=== PATIENT | female | born 1955 | race Caucasian/White ===

== ENCOUNTER → 2018-01-07 | Outpatient (CLI) | payer OTHER ==
--- NOTE | 2018-01-07 12:08 | Diagnostic Imaging Report ---
PROCEDURE: Frontal and lateral views of the chest. COMPARISON: None. INDICATIONS: COPD FINDINGS: Lines/tubes: None. Lungs: The lungs are well inflated and clear. There is no evidence of pneumonia or pulmonary edema. Pleura: There is no pleural effusion or pneumothorax. Heart and mediastinum: The heart and the mediastinum are normal. Bones: No acute bony abnormality. Degenerative changes of the thoracic spine. IMPRESSION: No acute radiographic abnormality. Dictated by: Albino Kearney M.D. on 01/07/2018 at 12:09 Electronically approved by: Albino Kearney M.D. on 01/07/2018 at 12:09
--- NOTE | 2018-01-07 12:09 | Diagnostic Imaging Report ---
PROCEDURE:X-RAY RIGHT SHOULDER, COMPLETE COMPARISON:None. INDICATIONS:RIGHT SHOULDER PAIN FINDINGS: There are no fractures, dislocations, lytic or blastic lesions. The bones are well-mineralized. The soft-tissues are unremarkable. CONCLUSION: No acute radiographic abnormality. Dictated by: Albino Kearney M.D. on 01/07/2018 at 12:10 Electronically approved by: Albino Kearney M.D. on 01/07/2018 at 12:10
== END ==
LOC: RAD 10:28
PROVIDERS: ATTEND Internal Medicine
DX: M25.511 Pain in right shoulder (principal); J44.9 Chronic obstructive pulmonary disease, unspecified
CPT/HCPCS: 71046

== ENCOUNTER → 2019-06-22 | Outpatient (CLI) | payer OTHER ==
[~2019-06-22] MED LIST: IOPAMIDOL 370 MG/ML 200 ML INFUS..BTL INJ ONE; SODIUM CHLORIDE 0.9% 50ML 50 ML ONE
[2019-06-22 13:19] LABS: BLOOD UREA NITROGEN 7 mg/dL (7-26); BUN/CREATININE RATIO 10 (6-25); CREATININE, SERUM 0.68 mg/dL (0.57-1.11); EST GLOMERULAR FILTRATION RATE > 60 ML/MIN (60-)
--- NOTE | 2019-06-22 14:12 | Diagnostic Imaging Report ---
EXAM: CT Abdomen and Pelvis WITH intravenous contrast INDICATION: Abdominal pain COMPARISON: None. TECHNIQUE: Abdomen and pelvis were scanned utilizing a multidetector helical scanner from the lung base to the pubic symphysis after administration of IV contrast. Coronal and sagittal reformations were obtained. Routine protocol was performed. Scan was performed during portal venous phase. IV CONTRAST: 100mL of Isovue 370 ORAL CONTRAST: Water RADIATION DOSE: Total DLP: 656.5 mGy*cm Dose modulation, iterative reconstruction, and/or weight based adjustment of the mA/kV was utilized to reduce the radiation dose to as low as reasonably achievable. FINDINGS: LOWER THORAX: Normal. HEPATOBILIARY: No focal hepatic lesions. No biliary ductal dilatation. Status post cholecystectomy. SPLEEN: No splenomegaly. PANCREAS: No focal masses or ductal dilatation. ADRENALS: No adrenal nodules. KIDNEYS/URETERS: No hydronephrosis, stones, or solid mass lesions. PELVIC ORGANS/BLADDER: Unremarkable. PERITONEUM / RETROPERITONEUM: No free air or fluid. LYMPH NODES: No lymphadenopathy. VESSELS: Scattered atherosclerotic calcifications of the nonaneurysmal abdominal aorta and major branches. GI TRACT: There is mucosal hyperenhancement and wall thickening associated with the distal and terminal ileum. Sigmoid diverticulosis with a segment of wall thickening in the region of several diverticuli. No surrounding inflammatory changes. No bowel obstruction. Normal appendix. BONES AND SOFT TISSUES: No acute osseous injury. Grade 1 anterolisthesis at L4-5. No suspicious lytic or blastic lesions. IMPRESSION: Wall thickening and enhancement of the distal and terminal ileum can be seen with enteritis or inflammatory bowel disease. Sigmoid diverticulosis with a segment of sigmoid colon wall thickening without associated surrounding inflammatory changes. Signed by: Luis Carranza MD on 06/22/2019 2:09 PM
== END ==
LOC: CT 11:28
PROVIDERS: ATTEND Internal Medicine
DX: R10.9 Unspecified abdominal pain (principal)
CPT/HCPCS: 36415; 74177; 82565; 84520; Q9967

== ENCOUNTER 2023-07-14 09:12 | Inpatient (IN) | payer MEDICARE ==
[~2023-07-14] VITALS: Ht 152.4 cm; Wt 65.8 kg
[2023-07-14] MEDS ORDERED: SODIUM CHLORIDE 0.9% 1000ML 1,000 ML IV STA (09:15)
[2023-07-14 10:06] LABS: BASOPHILS # (AUTO) 0.1 (0.0-0.1); BASOPHILS % 0.7 % (0.0-1.0); EOSINOPHILS # (AUTO) 0.2 (0.0-0.4); EOSINOPHILS % 1.8 % (0.0-6.0); HEMATOCRIT 38.8 % (34.2-44.1); LYMPHOCYTES % 15.2 % (18.0-39.1); MEAN CORPUSCULAR HEMOGLOBIN 28.5 pg (28-32); MEAN CORPUSCULAR HGB CONC 33.5 g/dL (31-35); MEAN CORPUSCULAR VOLUME 85.1 fL (81-99); MONOCYTES # (AUTO) 0.8 (0.2-0.8); MONOCYTES % 6.3 % (4.4-11.3); NEUTROPHILS # (AUTO) 10.1 (2.1-6.9); NEUTROPHILS % 75.6 % (38.7-80.0); PLATELET COUNT 394 x10e3/uL (140-360); RED BLOOD COUNT 4.56 x10e6/uL (3.6-5.1); RED CELL DISTRIBUTION WIDTH 13.9 % (11.7-14.4); WHITE BLOOD COUNT 13.28 x10e3/uL (4.8-10.8)
[2023-07-14 10:27] LABS: ALBUMIN 2.7 g/dL (3.5-5.0); ALBUMIN/GLOBULIN RATIO 0.7 (0.8-2.0); ANION GAP 18.6 mmol/L (8-16); CALCIUM 9.2 mg/dL (8.4-10.2); CREATININE, SERUM 0.85 mg/dL (0.57-1.11); INR 1.06; MAGNESIUM 1.8 MG/DL (1.3-2.1); PROTHROMBIN TIME 14.5 seconds (11.9-14.5)
[2023-07-14 10:28] LABS: PARTIAL THROMBOPLASTIN TIME 36.8 seconds (23.8-35.5)
[2023-07-14 10:31] LABS: POTASSIUM 2.6 mmol/L (3.5-5.1)
[2023-07-14 10:57] LABS: CLARITY,URINE CLOUDY (CLEAR); COLOR,URINE YELLOW (YELLOW); LEUKOCYTE ESTERASE ,URINE NEGATIVE (NEGATIVE); NITRITE,URINE NEGATIVE (NEGATIVE); PROTEIN,URINE DIPSTICK 2+ (NEGATIVE)
[2023-07-14 10:58] LABS: KETONES,URINE 2+ (NEGATIVE); URINE UROBILINOGEN 1 mg/dL (0.2 - 1)
[2023-07-14] MEDS: POTASSIUM CHLORIDE 10MEQ/100ML 100 ML IV SCH ×4 (11:13→23:49)
[2023-07-14 11:23] LABS: BACTERIA,URINE FEW /HPF; EPITHELIAL CELLS,URINE FEW /LPF; WBC,URINE (MAN) 0-5 /HPF (0-5)
[2023-07-14] MEDS ORDERED: Morphine 4mg INJECTION 4 MG/ML INJ IV PRN (12:00)
[2023-07-14] MEDS ORDERED: ONDANSETRON HCL INJ 2MG/ML 2ML 2 MG/ML VIAL IV PRN (12:00)
[2023-07-14] MEDS ORDERED: KCL 20MEQ/.9 SOD CHL 1,000 ML IV ONE (12:00)
[2023-07-14] MEDS: METRONIDAZOLE 500MG/NS 100ML 100 ML IV SCH ×2 (12:30→18:04)
[2023-07-14] MEDS ORDERED: SODIUM CHLORIDE 0.9% 250ML 250 ML ONE (14:11)
[2023-07-14 14:30] VITALS: BP 108/70; PULSE 77; RESP 20; TEMP 98.4; O2SAT 100
[2023-07-14] MEDS ORDERED: HYDRALAZINE HCL 20 MG/ML VIAL IV PRN (15:00)
[2023-07-14 15:17] VITALS: PULSE 75; RESP 20; O2SAT 98
[2023-07-14] MEDS: D5.45%NS/KCL 20MEQ 1,000 ML IV SCH (15:27)
[2023-07-14 19:45] VITALS: PULSE 72; RESP 18; O2SAT 97
[2023-07-14] MEDS ORDERED: DEXTROSE 50% SYRINGE 50 ML IV PRN (19:45)
[2023-07-14 19:47] VITALS: BP 98/67; PULSE 70; RESP 20; TEMP 98.7; O2SAT 97
[2023-07-14] MEDS ORDERED: TEMAZEPAM 15 MG CAP PO PRN (21:00)
[2023-07-14] MEDS: INSULIN REGULAR, HUMAN 100 UNIT/1 ML SQ SCH (21:00)
[2023-07-14] MEDS: MEROPENEM 1 GM in SODIUM CHLORIDE 0.9% 100 ML IV SCH (21:01)
[2023-07-14] MEDS ORDERED: POTASSIUM CHLORIDE 10MEQ/100ML 200 ML ONE (21:08)
[2023-07-14] MEDS: ACETAMINOPHEN 325 MG TAB PO PRN (21:12)
[2023-07-14 23:40] VITALS: BP 95/73; PULSE 68; RESP 18; TEMP 98.3; O2SAT 97
[2023-07-15] VITALS (10 sets, daily range): BP systolic 95–116; BP diastolic 70–85; PULSE 68–86; RESP 16–18; TEMP 97.4–98.3; O2SAT 96–99
[2023-07-15] MEDS: METRONIDAZOLE 500MG/NS 100ML 100 ML IV SCH ×5 (01:15→23:28)
[2023-07-15] MEDS: D5.45%NS/KCL 20MEQ 1,000 ML IV SCH ×3 (04:09→21:10)
[2023-07-15] MEDS: MEROPENEM 1 GM in SODIUM CHLORIDE 0.9% 100 ML IV SCH (04:09)
[2023-07-15] MEDS: ACETAMINOPHEN 325 MG TAB PO PRN ×3 (04:10→23:38)
[2023-07-15 05:08] LABS: BASOPHILS # (AUTO) 0.1 (0.0-0.1); BASOPHILS % 0.9 % (0.0-1.0); EOSINOPHILS # (AUTO) 0.4 (0.0-0.4); EOSINOPHILS % 3.3 % (0.0-6.0); HEMATOCRIT 33.2 % (34.2-44.1); HEMOGLOBIN 11.1 g/dL (12.0-16.0); LYMPHOCYTES # (AUTO) 1.4 (1.0-3.2); MEAN CORPUSCULAR HEMOGLOBIN 28.3 pg (28-32); MEAN CORPUSCULAR HGB CONC 33.4 g/dL (31-35); MEAN CORPUSCULAR VOLUME 84.7 fL (81-99); MONOCYTES # (AUTO) 0.8 (0.2-0.8); MONOCYTES % 7.2 % (4.4-11.3); NEUTROPHILS % 75.1 % (38.7-80.0); PLATELET COUNT 347 x10e3/uL (140-360); RED BLOOD COUNT 3.92 x10e6/uL (3.6-5.1); RED CELL DISTRIBUTION WIDTH 14.2 % (11.7-14.4); WHITE BLOOD COUNT 10.67 x10e3/uL (4.8-10.8)
[2023-07-15 05:36] LABS: ALBUMIN 2.1 g/dL (3.5-5.0); ALBUMIN/GLOBULIN RATIO 0.7 (0.8-2.0); ANION GAP 12.8 mmol/L (8-16); CALCIUM 8.1 mg/dL (8.4-10.2); CREATININE, SERUM 0.7 mg/dL (0.57-1.11); POTASSIUM 2.8 mmol/L (3.5-5.1)
[2023-07-15 05:50] LABS: CHOL/HDL RATIO 3.1 (3.0-3.6); PHOSPHORUS 2.7 MG/DL (2.3-4.7)
[2023-07-15] MEDS: INSULIN REGULAR, HUMAN 100 UNIT/1 ML SQ SCH ×4 (07:30→21:00)
[2023-07-15] MEDS: POTASSIUM CHLORIDE 20MEQ/100ML 100 ML IV SCH ×3 (09:03→13:55)
[2023-07-15] MEDS: CEFEPIME 2 GM in SODIUM CHLORIDE 0.9% 100 ML IV SCH ×2 (13:54→21:11)
[2023-07-15] MEDS ORDERED: LEVOTHYROXINE SODIUM 100 MCG/VIAL IV ONE (15:45)
[2023-07-15 23:12] LABS: % IRON SATURATION 21 % (15-50); IRON 27 ug/dL (50-170); TOTAL IRON BINDING CAPACITY 130 ug/dL (261-478); TRANSFERRIN 93 mg/dL (180-382)
[2023-07-16] VITALS (9 sets, daily range): BP systolic 99–121; BP diastolic 69–85; PULSE 75–88; RESP 16–18; TEMP 97.2–98.2; O2SAT 92–100
[2023-07-16] MEDS: METRONIDAZOLE 500MG/NS 100ML 100 ML IV SCH ×3 (05:16→17:00)
[2023-07-16] MEDS: CEFEPIME 2 GM in SODIUM CHLORIDE 0.9% 100 ML IV SCH ×4 (05:16→20:59)
[2023-07-16] MEDS: D5.45%NS/KCL 20MEQ 1,000 ML IV SCH ×2 (05:18→17:06)
[2023-07-16 05:50] LABS: BASOPHILS # (AUTO) 0.1 (0.0-0.1); BASOPHILS % 0.8 % (0.0-1.0); EOSINOPHILS # (AUTO) 0.2 (0.0-0.4); EOSINOPHILS % 2.4 % (0.0-6.0); HEMATOCRIT 33.8 % (34.2-44.1); HEMOGLOBIN 11.1 g/dL (12.0-16.0); LYMPHOCYTES # (AUTO) 1.5 (1.0-3.2); LYMPHOCYTES % 15.4 % (18.0-39.1); MEAN CORPUSCULAR HGB CONC 32.8 g/dL (31-35); MEAN CORPUSCULAR VOLUME 85.1 fL (81-99); MONOCYTES # (AUTO) 0.8 (0.2-0.8); MONOCYTES % 8.7 % (4.4-11.3); NEUTROPHILS # (AUTO) 6.9 (2.1-6.9); NEUTROPHILS % 72.4 % (38.7-80.0); PLATELET COUNT 360 x10e3/uL (140-360); RED BLOOD COUNT 3.97 x10e6/uL (3.6-5.1); RED CELL DISTRIBUTION WIDTH 14.2 % (11.7-14.4); WHITE BLOOD COUNT 9.57 x10e3/uL (4.8-10.8)
[2023-07-16 06:15] LABS: ALBUMIN 2.1 g/dL (3.5-5.0); ALBUMIN/GLOBULIN RATIO 0.6 (0.8-2.0); ANION GAP 11.2 mmol/L (8-16); CALCIUM 8.1 mg/dL (8.4-10.2); CREATININE, SERUM 0.67 mg/dL (0.57-1.11); POTASSIUM 3.2 mmol/L (3.5-5.1)
[2023-07-16] MEDS: INSULIN REGULAR, HUMAN 100 UNIT/1 ML SQ SCH ×4 (07:30→21:00)
[2023-07-16] MEDS: ACETAMINOPHEN 325 MG TAB PO PRN ×2 (08:16→14:04)
[2023-07-16] MEDS: IRON SUCROSE 100 MG in SODIUM CHLORIDE 0.9% 100 ML IV SCH (08:23)
[2023-07-16] MEDS: HYDROCODONE/APAP 7.5MG-325MG 1 EA TAB PO PRN (20:48)
[2023-07-17] VITALS (9 sets, daily range): BP systolic 101–113; BP diastolic 64–82; PULSE 69–73; RESP 17–18; TEMP 97.2–98.2; O2SAT 95–100
[2023-07-17] MEDS: METRONIDAZOLE 500MG/NS 100ML 100 ML IV SCH ×4 (01:44→16:50)
[2023-07-17 06:12] LABS: BASOPHILS # (AUTO) 0.1 (0.0-0.1); BASOPHILS % 0.9 % (0.0-1.0); EOSINOPHILS # (AUTO) 0.3 (0.0-0.4); EOSINOPHILS % 3.8 % (0.0-6.0); HEMATOCRIT 32.8 % (34.2-44.1); HEMOGLOBIN 10.9 g/dL (12.0-16.0); LYMPHOCYTES # (AUTO) 1.6 (1.0-3.2); LYMPHOCYTES % 20.2 % (18.0-39.1); MEAN CORPUSCULAR HEMOGLOBIN 28.2 pg (28-32); MEAN CORPUSCULAR HGB CONC 33.2 g/dL (31-35); MEAN CORPUSCULAR VOLUME 84.8 fL (81-99); MONOCYTES # (AUTO) 0.7 (0.2-0.8); MONOCYTES % 8.5 % (4.4-11.3); NEUTROPHILS # (AUTO) 5.4 (2.1-6.9); NEUTROPHILS % 66.4 % (38.7-80.0); PLATELET COUNT 345 x10e3/uL (140-360); RED BLOOD COUNT 3.87 x10e6/uL (3.6-5.1); RED CELL DISTRIBUTION WIDTH 14.6 % (11.7-14.4)
[2023-07-17 06:47] LABS: BLOOD UREA NITROGEN < 5 mg/dL (7-26); CALCIUM 7.9 mg/dL (8.4-10.2); CARBON DIOXIDE 21 mmol/L (22-29); CHLORIDE 114 mmol/L (98-107); CREATININE, SERUM 0.72 mg/dL (0.57-1.11); GLUCOSE 103 mg/dL (74-118); MAGNESIUM 1.4 MG/DL (1.3-2.1); SODIUM 143 mmol/L (136-145)
[2023-07-17 06:52] LABS: BUN/CREATININE RATIO 7 (6-25)
[2023-07-17] MEDS: INSULIN REGULAR, HUMAN 100 UNIT/1 ML SQ SCH ×4 (07:30→21:00)
[2023-07-17] MEDS: D5.45%NS/KCL 20MEQ 1,000 ML IV SCH (08:21)
[2023-07-17] MEDS: IRON SUCROSE 100 MG in SODIUM CHLORIDE 0.9% 100 ML IV SCH (08:22)
[2023-07-17] MEDS: HYDROCODONE/APAP 7.5MG-325MG 1 EA TAB PO PRN ×3 (08:22→18:40)
[2023-07-17] MEDS ORDERED: ROSUVASTATIN CAL5 MG PO (08:27)
[2023-07-17] MEDS ORDERED: LEVOTHYROXINE88 MCG PO (08:27)
[2023-07-17] MEDS ORDERED: METFORMIN HCL500 M1 PO (08:27)
[2023-07-17] MEDS ORDERED: LISINOPRIL10 MG PO (08:27)
[2023-07-17] MEDS ORDERED: ALBUTEROL INH (08:27)
[2023-07-17] MEDS: MAGNESIUM SULFATE 2GM/50ML 50 ML IV SCH ×2 (10:06→12:06)
[2023-07-17] MEDS: POTASSIUM CHLORIDE 20MEQ/100ML 100 ML IV SCH ×3 (10:06→15:07)
[2023-07-17] MEDS: CEFEPIME 2 GM in SODIUM CHLORIDE 0.9% 100 ML IV SCH ×2 (13:17→22:03)
[2023-07-17] MEDS: ACETAMINOPHEN 325 MG TAB PO PRN (22:28)
[2023-07-18] VITALS (10 sets, daily range): BP systolic 103–122; BP diastolic 62–84; PULSE 54–86; RESP 18–20; TEMP 98–99.2; O2SAT 94–100
[2023-07-18] MEDS: METRONIDAZOLE 500MG/NS 100ML 100 ML IV SCH ×5 (00:44→23:18)
[2023-07-18] MEDS: ACETAMINOPHEN 325 MG TAB PO PRN (05:50)
[2023-07-18] MEDS: D5.45%NS/KCL 20MEQ 1,000 ML IV SCH (05:52)
[2023-07-18] MEDS: CEFEPIME 2 GM in SODIUM CHLORIDE 0.9% 100 ML IV SCH ×3 (05:53→22:28)
[2023-07-18 07:11] LABS: ANION GAP 10.8 mmol/L (8-16); CALCIUM 8.3 mg/dL (8.4-10.2); CREATININE, SERUM 0.74 mg/dL (0.57-1.11); POTASSIUM 3.8 mmol/L (3.5-5.1)
[2023-07-18] MEDS: HYDROCODONE/APAP 7.5MG-325MG 1 EA TAB PO PRN ×3 (09:22→21:25)
[2023-07-18] MEDS: INSULIN REGULAR, HUMAN 100 UNIT/1 ML SQ SCH ×4 (09:25→21:00)
[2023-07-18] MEDS: ONDANSETRON HCL 4 MG ORAL DISINTEGRATING TAB PO PRN ×2 (09:26→13:34)
[2023-07-18] MEDS: IRON SUCROSE 100 MG in SODIUM CHLORIDE 0.9% 100 ML IV SCH (09:47)
[2023-07-19] VITALS (12 sets, daily range): BP systolic 91–123; BP diastolic 72–92; PULSE 66–80; RESP 16–20; TEMP 98.1–98.8; O2SAT 94–100
[2023-07-19] MEDS: D5.45%NS/KCL 20MEQ 1,000 ML IV SCH ×2 (00:08→20:59)
[2023-07-19] MEDS: CEFEPIME 2 GM in SODIUM CHLORIDE 0.9% 100 ML IV SCH ×3 (05:28→22:28)
[2023-07-19] MEDS: METRONIDAZOLE 500MG/NS 100ML 100 ML IV SCH ×3 (05:28→17:15)
[2023-07-19] MEDS: INSULIN REGULAR, HUMAN 100 UNIT/1 ML SQ SCH ×4 (07:30→20:11)
[2023-07-19] MEDS: ONDANSETRON HCL 4 MG ORAL DISINTEGRATING TAB PO PRN ×2 (07:46→12:26)
[2023-07-19] MEDS: IRON SUCROSE 100 MG in SODIUM CHLORIDE 0.9% 100 ML IV SCH (07:47)
[2023-07-19] MEDS: HYDROCODONE/APAP 7.5MG-325MG 1 EA TAB PO PRN ×2 (13:31→20:13)
[2023-07-20] VITALS (10 sets, daily range): BP systolic 109–133; BP diastolic 76–92; PULSE 66–103; RESP 16–20; TEMP 98.1–98.6; O2SAT 94–100
[2023-07-20] MEDS: METRONIDAZOLE 500MG/NS 100ML 100 ML IV SCH ×5 (00:07→23:29)
[2023-07-20] MEDS: HYDROCODONE/APAP 7.5MG-325MG 1 EA TAB PO PRN ×4 (02:37→20:17)
[2023-07-20] MEDS: CEFEPIME 2 GM in SODIUM CHLORIDE 0.9% 100 ML IV SCH ×3 (06:00→22:23)
[2023-07-20] MEDS: INSULIN REGULAR, HUMAN 100 UNIT/1 ML SQ SCH ×4 (07:30→20:15)
[2023-07-20] MEDS: IRON SUCROSE 100 MG in SODIUM CHLORIDE 0.9% 100 ML IV SCH (09:26)
[2023-07-20 10:56] LABS: ANION GAP 10.3 mmol/L (8-16); CALCIUM 8.2 mg/dL (8.4-10.2); CREATININE, SERUM 0.8 mg/dL (0.57-1.11); MAGNESIUM 1.3 MG/DL (1.3-2.1); PHOSPHORUS 2.3 MG/DL (2.3-4.7); POTASSIUM 3.3 mmol/L (3.5-5.1)
[2023-07-20 10:59] LABS: BASOPHILS # (AUTO) 0.1 (0.0-0.1); BASOPHILS % 0.8 % (0.0-1.0); EOSINOPHILS # (AUTO) 0.5 (0.0-0.4); EOSINOPHILS % 5.4 % (0.0-6.0); HEMATOCRIT 32.9 % (34.2-44.1); HEMOGLOBIN 10.9 g/dL (12.0-16.0); LYMPHOCYTES # (AUTO) 1.8 (1.0-3.2); LYMPHOCYTES % 21.2 % (18.0-39.1); MEAN CORPUSCULAR HEMOGLOBIN 27.9 pg (28-32); MEAN CORPUSCULAR HGB CONC 33.1 g/dL (31-35); MEAN CORPUSCULAR VOLUME 84.1 fL (81-99); MONOCYTES # (AUTO) 0.6 (0.2-0.8); MONOCYTES % 6.6 % (4.4-11.3); NEUTROPHILS # (AUTO) 5.6 (2.1-6.9); NEUTROPHILS % 65.6 % (38.7-80.0); PLATELET COUNT 349 x10e3/uL (140-360); RED BLOOD COUNT 3.91 x10e6/uL (3.6-5.1); RED CELL DISTRIBUTION WIDTH 15.4 % (11.7-14.4); WHITE BLOOD COUNT 8.51 x10e3/uL (4.8-10.8)
[2023-07-20] MEDS: D5.45%NS/KCL 20MEQ 1,000 ML IV SCH (11:51)
[2023-07-21] VITALS (11 sets, daily range): BP systolic 110–125; BP diastolic 64–89; PULSE 69–89; RESP 16–22; TEMP 98.1–98.8; O2SAT 94–100
[2023-07-21] MEDS: D5.45%NS/KCL 20MEQ 1,000 ML IV SCH (04:47)
[2023-07-21] MEDS: HYDROCODONE/APAP 7.5MG-325MG 1 EA TAB PO PRN ×4 (04:55→20:27)
[2023-07-21] MEDS: METRONIDAZOLE 500MG/NS 100ML 100 ML IV SCH ×3 (04:55→17:54)
[2023-07-21] MEDS ORDERED: MAGNESIUM SULFATE 2GM/50ML 50 ML IV ONE ×2 (05:15)
[2023-07-21] MEDS: CEFEPIME 2 GM in SODIUM CHLORIDE 0.9% 100 ML IV SCH ×3 (06:14→22:22)
[2023-07-21] MEDS ORDERED: LEVOTHYROXINE SODIUM 100 MCG/VIAL IV ONE (06:45)
[2023-07-21] MEDS: INSULIN REGULAR, HUMAN 100 UNIT/1 ML SQ SCH ×4 (07:30→21:00)
[2023-07-21] MEDS ORDERED: PROMETHAZINE 12.5MG/ NACL 0.9% 12.5 MG/50 ML BAG IV PRN (18:15)
[2023-07-21] MEDS ORDERED: Morphine 4mg INJECTION 4 MG/ML INJ IV PRN (18:15)
[2023-07-21] MEDS ORDERED: POTASSIUM CHLORIDE 20 MEQ TAB CR PO ONE (22:45)
[2023-07-22] VITALS (8 sets, daily range): BP systolic 102–124; BP diastolic 69–84; PULSE 66–91; RESP 16–19; TEMP 97.8–98.1; O2SAT 96–100
[2023-07-22] MEDS: METRONIDAZOLE 500MG/NS 100ML 100 ML IV SCH ×4 (00:04→17:41)
[2023-07-22] MEDS: HYDROCODONE/APAP 7.5MG-325MG 1 EA TAB PO PRN ×4 (00:29→18:45)
[2023-07-22] MEDS: LEVOTHYROXINE SODIUM 88 MCG TAB PO SCH (05:34)
[2023-07-22 05:53] LABS: BASOPHILS # (AUTO) 0.1 (0.0-0.1); BASOPHILS % 1.5 % (0.0-1.0); EOSINOPHILS # (AUTO) 0.7 (0.0-0.4); HEMATOCRIT 30.4 % (34.2-44.1); LYMPHOCYTES % 30.4 % (18.0-39.1); MEAN CORPUSCULAR HEMOGLOBIN 31.1 pg (28-32); MEAN CORPUSCULAR HGB CONC 36.2 g/dL (31-35); MEAN CORPUSCULAR VOLUME 85.9 fL (81-99); MONOCYTES # (AUTO) 0.6 (0.2-0.8); MONOCYTES % 9.4 % (4.4-11.3); NEUTROPHILS # (AUTO) 3.2 (2.1-6.9); NEUTROPHILS % 48.3 % (38.7-80.0); PLATELET COUNT 257 x10e3/uL (140-360); RED BLOOD COUNT 3.54 x10e6/uL (3.6-5.1); RED CELL DISTRIBUTION WIDTH 18.3 % (11.7-14.4); WHITE BLOOD COUNT 6.67 x10e3/uL (4.8-10.8)
[2023-07-22 06:18] LABS: ANION GAP 8.3 mmol/L (8-16); CREATININE, SERUM 0.71 mg/dL (0.57-1.11); MAGNESIUM 1.7 MG/DL (1.3-2.1); POTASSIUM 3.3 mmol/L (3.5-5.1)
[2023-07-22] MEDS: CEFEPIME 2 GM in SODIUM CHLORIDE 0.9% 100 ML IV SCH ×3 (06:18→23:47)
[2023-07-22] MEDS: INSULIN REGULAR, HUMAN 100 UNIT/1 ML SQ SCH ×4 (07:30→21:00)
[2023-07-22] MEDS ORDERED: MAGNESIUM SULF 1GRAM/DEXTROSE 100 ML IV ONE (10:30)
[2023-07-22] MEDS: MAGNESIUM SULFATE 2GM/50ML 50 ML IV SCH ×2 (10:37→13:00)
[2023-07-22] MEDS: D5.45%NS/KCL 20MEQ 1,000 ML IV SCH (10:48)
[2023-07-22] MEDS: POTASSIUM CHLORIDE 20MEQ/100ML 100 ML IV SCH ×3 (12:00→23:47)
[2023-07-22] MEDS: MAGNESIUM OXIDE 400 MG TAB PO SCH (17:40)
[2023-07-23] VITALS: BP 129/78; PULSE 82; RESP 18; TEMP 98.2; O2SAT 98
[2023-07-23] MEDS ORDERED: POTASSIUM CHLORIDE 20MEQ/100ML 100 ML IV SCH
[2023-07-23] MEDS: METRONIDAZOLE 500MG/NS 100ML 100 ML IV SCH ×3 (01:00→11:58)
[2023-07-23 04:00] VITALS: BP 109/72; PULSE 70; RESP 18; TEMP 97.9; O2SAT 98
[2023-07-23] MEDS: LEVOTHYROXINE SODIUM 88 MCG TAB PO SCH (05:46)
[2023-07-23] MEDS: CEFEPIME 2 GM in SODIUM CHLORIDE 0.9% 100 ML IV SCH ×2 (05:46→13:17)
[2023-07-23 06:53] VITALS: PULSE 78; RESP 20; O2SAT 98
[2023-07-23 07:04] LABS: ANION GAP 8.7 mmol/L (8-16); CALCIUM 7.7 mg/dL (8.4-10.2); CREATININE, SERUM 0.71 mg/dL (0.57-1.11); MAGNESIUM 1.9 MG/DL (1.3-2.1); PHOSPHORUS 1.4 MG/DL (2.3-4.7); POTASSIUM 3.7 mmol/L (3.5-5.1)
[2023-07-23] MEDS: INSULIN REGULAR, HUMAN 100 UNIT/1 ML SQ SCH ×2 (07:30→12:06)
[2023-07-23] MEDS: HYDROCODONE/APAP 7.5MG-325MG 1 EA TAB PO PRN (07:51)
[2023-07-23 07:53] VITALS: BP 112/84; PULSE 67; RESP 18; TEMP 98.1; O2SAT 100
[2023-07-23] MEDS: MAGNESIUM OXIDE 400 MG TAB PO SCH (08:12)
[2023-07-23] MEDS ORDERED: POTASSIUM CHLORIDE 20MEQ/100ML 100 ML IV ONE (09:00)
[2023-07-23] MEDS ORDERED: POTASSIUM CHLORIDE 20 MEQ TAB CR PO SCH (09:00)
[2023-07-23 09:07] VITALS: BP 112/84; PULSE 67; RESP 18; TEMP 98.1; O2SAT 100
[2023-07-23] MEDS ORDERED: POTASSIUM PHOSPHATE 30 MM in SODIUM CHLORIDE 0.9% 250ML 250 ML IV ONE (09:30)
[2023-07-23 11:48] VITALS: BP 105/74; PULSE 65; RESP 17; TEMP 98.4; O2SAT 100
[2023-07-23] MEDS ORDERED: ONDANSETRON ODT4 MG PO (12:46)
[2023-07-23] MEDS ORDERED: PROTONIX20 MG PO (12:46)
[2023-07-23] MEDS ORDERED: METRONIDAZOLE500 MG PO (13:09)
[2023-07-23] MEDS: ACETAMINOPHEN 325 MG TAB PO PRN (14:30)
[2023-07-23] MEDS ORDERED: PANTOPRAZOLE SOD 40 MG TABEC PO SCH (16:30)
== END 2023-07-23 15:10 | disposition home or self-care (01) | DRG 872 ==
LOC: ER 09:17 → ERHOLD 12:06 → MED/SURG 13:42
PROVIDERS: ADMIT Internal Medicine; ATTEND Internal Medicine
PROC: 3E04329 Introduction of Other Anti-infective into Central Vein, Percutaneous Approach (ICD-10-PCS; principal; 2023-07-14)
PROC: 02HV33Z Insertion of Infusion Device into Superior Vena Cava, Percutaneous Approach (ICD-10-PCS; 2023-07-15)
PROC: B548ZZA Ultrasonography of Superior Vena Cava, Guidance (ICD-10-PCS; 2023-07-15)
DX: A41.9 Sepsis, unspecified organism (principal); K57.20 Diverticulitis of large intestine with perforation and abscess without bleeding; N13.4 Hydroureter; N13.39 Other hydronephrosis; I10 Essential (primary) hypertension; E11.9 Type 2 diabetes mellitus without complications; N74 Female pelvic inflammatory disorders in diseases classified elsewhere; E03.9 Hypothyroidism, unspecified; F17.210 Nicotine dependence, cigarettes, uncomplicated; K57.90 Diverticulosis of intestine, part unspecified, without perforation or abscess without bleeding; E87.6 Hypokalemia; R53.81 Other malaise; E83.42 Hypomagnesemia; J44.9 Chronic obstructive pulmonary disease, unspecified; Z79.899 Other long term (current) drug therapy; Z79.890 Hormone replacement therapy; Z20.822 Contact with and (suspected) exposure to COVID-19
CPT/HCPCS: 36415; 36569; 71045; 74177; 76770; 80048; 80053; 80061; 81001; 82607; 82746; 82948; 83036; 83540; 83605; 83735; 84100; 84439; 84443; 84466; 85025; 85045; 85610; 85730; 87040; 87086; 93005; 93306; 94799; 99285; J0692; J1756; J2185; J2270; J2543; J3475; J3480; J7030; J7050; Q0162; U0002

== ENCOUNTER → 2023-08-31 | Outpatient (REF) | payer MEDICARE ==
[~2023-08-31] MED LIST changes: +ALBUTEROL INH; +DIATRIZOATE MEGL/DIATRIZOA SOD 30 ML BTL PO ONE; +IOPAMIDOL 370 MG/ML 100 ML INFUS..BTL INJ ONE; -IOPAMIDOL 370 MG/ML 200 ML INFUS..BTL INJ ONE; +LEVOTHYROXINE88 MCG PO; +LISINOPRIL10 MG PO; +METFORMIN HCL500 M1 PO; +METRONIDAZOLE500 MG PO; +ONDANSETRON ODT4 MG PO; +PROTONIX20 MG PO; +ROSUVASTATIN CAL5 MG PO; -SODIUM CHLORIDE 0.9% 50ML 50 ML ONE
[2023-08-31 14:33] LABS: CREATININE, SERUM 0.72 mg/dL (0.57-1.11)
== END ==
LOC: CT 13:30
PROVIDERS: ATTEND Internal Medicine Infectious Disease
DX: K57.30 Diverticulosis of large intestine without perforation or abscess without bleeding (principal)
CPT/HCPCS: 36415; 74177; 82565; 84520; Q9963; Q9967

== ENCOUNTER → 2023-12-07 | Outpatient (REF) | payer MEDICARE ==
[~2023-12-07] MED LIST changes: -DIATRIZOATE MEGL/DIATRIZOA SOD 30 ML BTL PO ONE; -IOPAMIDOL 370 MG/ML 100 ML INFUS..BTL INJ ONE
== END ==
LOC: CT 14:19
PROVIDERS: ATTEND Internal Medicine
DX: Z12.2 Encounter for screening for malignant neoplasm of respiratory organs (principal)
CPT/HCPCS: 71250

== ENCOUNTER → 2024-02-12 | Outpatient (REF) | payer MEDICARE | LOC: CT 13:39 | PROVIDERS: ATTEND Urology | DX: T19.1XXA Foreign body in bladder, initial encounter (principal); R31.21 Asymptomatic microscopic hematuria | CPT/HCPCS: 74176 ==

== ENCOUNTER → 2024-04-15 | Day surgery (SDC) | payer MEDICARE ==
[2024-04-14 12:05] LABS: BASOPHILS # (AUTO) 0.1 (0.0-0.1); BASOPHILS % 0.5 % (0.0-1.0); EOSINOPHILS # (AUTO) 0.2 (0.0-0.4); EOSINOPHILS % 1.9 % (0.0-6.0); HEMATOCRIT 49.3 % (34.2-44.1); HEMOGLOBIN 15.4 g/dL (12.0-16.0); LYMPHOCYTES # (AUTO) 1.7 (1.0-3.2); LYMPHOCYTES % 17.3 % (18.0-39.1); MEAN CORPUSCULAR HEMOGLOBIN 29.2 pg (28-32); MEAN CORPUSCULAR HGB CONC 31.2 g/dL (31-35); MEAN CORPUSCULAR VOLUME 93.4 fL (81-99); MONOCYTES # (AUTO) 0.6 (0.2-0.8); MONOCYTES % 6.2 % (4.4-11.3); NEUTROPHILS # (AUTO) 7.1 (2.1-6.9); NEUTROPHILS % 73.7 % (38.7-80.0); PLATELET COUNT 255 x10e3/uL (140-360); RED BLOOD COUNT 5.28 x10e6/uL (3.6-5.1); RED CELL DISTRIBUTION WIDTH 14.2 % (11.7-14.4); WHITE BLOOD COUNT 9.67 x10e3/uL (4.8-10.8)
[2024-04-14 12:17] LABS: ANION GAP 19.3 mmol/L (8-16); CALCIUM 10.1 mg/dL (8.4-10.2); CREATININE, SERUM 0.88 mg/dL (0.57-1.11)
[2024-04-14 12:18] LABS: POTASSIUM 5.3 mmol/L (3.5-5.1)
[~2024-04-15] MED LIST changes: +ACETAMINOPHEN 1000 MG/100 ML IV ONE; +ASPIRIN81 MG PO; +COQ-10100 MG; +DEXAMETHASONE SOD PHOS INJ 4 MG/ML SDV ONE; +FAMOTIDINE 20 MG/2 ML VIAL IV ONE; +FENTANYL CITRATE/PF 100MCG/2 ML INJ ONE; +LIDOCAINE HCL 2% LOCAL INJ 5 ML SDV VIAL INJ ONE; +MULTI-VITAMIN1 EACH PO; +ONDANSETRON HCL INJ 2MG/ML 2ML 2 MG/ML VIAL ONE; +PHENAZOPYRIDINE HCL 100 MG TAB ONE; +PROPOFOL IV EMULSION 10 MG/ML 20 ML VIAL ONE; +SEVOFLURANE INHAL SOLN 250 ML PEN BTL ONE; +VITAMIN B; +VITAMIN D
[2024-04-15] MEDS: CEFTRIAXONE 1 GM VIAL ONE (12:06)
[2024-04-15] MEDS: LACTATED RINGER'S 1,000 ML ONE (12:06)
[2024-04-15] MEDS: FLUCONAZOLE 200 MG/100 ML 100 ML IV ONE (12:06)
[2024-04-15 13:35] VITALS: BP 138/74; PULSE 61; RESP 17; O2SAT 100
== END | disposition home or self-care (01) ==
LOC: OR 08:15
PROVIDERS: ATTEND Urology
DX: N13.30 Unspecified hydronephrosis (principal); Z46.6 Encounter for fitting and adjustment of urinary device; N13.8 Other obstructive and reflux uropathy; N39.0 Urinary tract infection, site not specified; N95.2 Postmenopausal atrophic vaginitis; N81.6 Rectocele; N81.10 Cystocele, unspecified; E11.9 Type 2 diabetes mellitus without complications; I10 Essential (primary) hypertension; E78.5 Hyperlipidemia, unspecified; J44.9 Chronic obstructive pulmonary disease, unspecified; R63.4 Abnormal weight loss; E03.9 Hypothyroidism, unspecified; F17.210 Nicotine dependence, cigarettes, uncomplicated; Z01.810 Encounter for preprocedural cardiovascular examination; Z01.812 Encounter for preprocedural laboratory examination; Z01.818 Encounter for other preprocedural examination; Z79.82 Long term (current) use of aspirin; Z79.84 Long term (current) use of oral hypoglycemic drugs; Z79.899 Other long term (current) drug therapy
CPT/HCPCS: 36415 ×2; 52351; 71046; 74018; 74420; 80048; 82948; 84132; 85025; 87086; 93005; C1769; J0131; J0696; J1100; J1450; J2001; J2405; J2704; J3010; J7121

== ENCOUNTER → 2024-08-09 | Outpatient (REF) | payer MEDICARE ==
[~2024-08-09] MED LIST changes: -ACETAMINOPHEN 1000 MG/100 ML IV ONE; -DEXAMETHASONE SOD PHOS INJ 4 MG/ML SDV ONE; -FAMOTIDINE 20 MG/2 ML VIAL IV ONE; -FENTANYL CITRATE/PF 100MCG/2 ML INJ ONE; -LIDOCAINE HCL 2% LOCAL INJ 5 ML SDV VIAL INJ ONE; -ONDANSETRON HCL INJ 2MG/ML 2ML 2 MG/ML VIAL ONE; -PHENAZOPYRIDINE HCL 100 MG TAB ONE; -PROPOFOL IV EMULSION 10 MG/ML 20 ML VIAL ONE; -SEVOFLURANE INHAL SOLN 250 ML PEN BTL ONE
== END ==
LOC: MAMMO 10:36
PROVIDERS: ATTEND Internal Medicine
DX: Z12.31 Encounter for screening mammogram for malignant neoplasm of breast (principal)
CPT/HCPCS: 77067

== ENCOUNTER → 2024-12-16 | Outpatient (REF) | payer MEDICARE ==
[~2024-12-16] MED LIST changes: +FUROSEMIDE INJ 10 MG/ML 4 ML VIAL ONE
== END ==
LOC: NM 12:23
PROVIDERS: ATTEND Urology
DX: N13.30 Unspecified hydronephrosis (principal)
CPT/HCPCS: 78708; A9562; J1940